=== PATIENT | female | born 1950 | race Caucasian/White ===

== ENCOUNTER 2018-02-16 08:48 | Day surgery (SDC) | payer OTHER ==
[2018-02-12 18:24] VITALS: Ht 162.6 cm; Wt 84.1 kg
[2018-02-16] VITALS (15 sets, daily range): BP systolic 133–201; BP diastolic 49–95; PULSE 52–92; RESP 10–24
[~2018-02-16] VITALS: Ht 162.6 cm; Wt 84.1 kg
[~2018-02-16 08:48] MED LIST: HYDR-2086 PO; LOXA50CA PO; METO-335 PO; OMEG-53 PO; SEVOFLURANE 15 MIN ONE; TEMA30CA PO
[2018-02-16] MEDS ORDERED: TRIH2TAB2 PO (09:21)
[2018-02-16] MEDS ORDERED: CYCL10TA7 PO (09:22)
[2018-02-16] MEDS ORDERED: MELA5TAB4 PO (09:23)
[2018-02-16] MEDS ORDERED: MAGN250T10 PO (09:24)
[2018-02-16] MEDS ORDERED: ASC500 PO (09:25)
[2018-02-16] MEDS ORDERED: MULT-542 PO (09:26)
[2018-02-16] MEDS ORDERED: LIDOCAINE 1%/EPI 30 ML INJ ONE (12:29)
[2018-02-16] MEDS ORDERED: COCAINE 4% 4 ML TOP ONE (12:29)
[2018-02-16] MEDS ORDERED: POLYMYXIN/BACITRACIN 1L IRRIG ONE (12:30)
[2018-02-16] MEDS ORDERED: BACITRACIN/POLYMYXIN 28.35 GM OINT TOP ONE (12:30)
--- NOTE | 2018-02-16 12:32 | HPN ---
Date/Time of Note Date/Time of Note DATE: 02/16/18 TIME: 12:32 Interval H&P Admission Note Pt. seen H&P reviewed: No system changes YAIR SAEED M.D. Feb 16, 2018 12:32
--- NOTE | 2018-02-16 12:47 | PREAC ---
Date/Time of Note Date/Time of Note DATE: 02/16/18 TIME: 12:42 Anesthesia Eval and Record Evaluation Time Pre-Procedure Interview DATE: 02/16/18 TIME: 12:42 Age 67 Sex female NPO: 8 hrs Preoperative diagnosis chronic nasal obstruction Planned procedure bilateral laser turbinoplasty, septoplasty, sphenoid sinus sinusotomies Past Medical History Past Medical History: Includes Cardio: HTN Neuro: Other (migraines) Renal: Other (chronic cystitis) GI: Other (mandible fx s/p surgeries, peptic ulcer disease) Surgery & Anesthesia Issues No known issue Meds Anticoagulation: No Beta Catina within 24 hr: Yes Reason Beta Catina not given: Bradycarida, Hypotension Reported Medications Multivitamin* (Daily Value*) 1 Each Tablet, 1 TAB PO DAILY, TAB 02/16/18 Ascorbic Acid (Vitamin C) 500 Mg Tab, 1000 MG PO DAILY, TAB 02/16/18 Magnesium Oxide (Magnesium) 250 Mg Tablet, 250 MG PO DAILY, TAB 02/16/18 Melatonin (Melatonin) 5 Mg Tablet, 5 MG PO HS, TAB 02/16/18 Cyclobenzaprine Hcl* (Cyclobenzaprine Hcl*) 10 Mg Tablet, 10 MG PO Q8 PRN for MUSCLE SPASMS, #60 TAB 02/16/18 Trihexyphenidyl Hcl* (Trihexyphenidyl Hcl*) 2 Mg Tab, 2 MG PO QHS, #120 TAB 02/16/18 Crosby-3/Dha/Epa/Fish Oil (FISH OIL 500 MG SOFTGEL) 1 Each Capsule, 1 EACH PO, CAP 02/12/18 Hydrocodone Bit-Acetaminophen* (Vicodin*) 5-300 Tab, 1 TAB PO Q4H PRN for PAIN, TAB 02/12/18 Metoprolol Succinate* (Toprol XL*) 25 Mg Tab.sr.24h, 25 MG PO DAILY, #30 TAB 02/12/18 Temazepam* (Temazepam*) 30 Mg Capsule, 30 MG PO HS PRN for INSOMNIA, CAP 02/12/18 Loxapine Succinate (Loxapine) 50 Mg Capsule, 40 MG PO PC MEALS BEDTIME, CAP 02/12/18 Meds reviewed: Yes Allergies Coded Allergies: morphine (Verified Allergy, Severe, VOMITING, 02/16/18) Allergies Reviewed: Yes Labs/Studies Labs Reviewed: Reviewed by anesthesiologist test: N/A Pre-procedure Exam Last vitals Vital Signs Date Temp Pulse Resp B/P (MAP) Pulse Ox O2 O2 Flow FiO2 Time Delivery Rate 02/16/18 98.8 52 18 153/70 97 Room Air 09:39 (97) Airway: Adequate mouth opening (decreased mouth opening), Adequate thyromental dist Mallampati: Mallampati III Teeth: Normal Lung: Normal Heart: Normal ASA Physical Status ASA physical status: 2 Emergency: None Planned Anesthetic General/MAC: ETT Planned Pain Management Parenteral pain med, Local by surgeon Pre-operative Attestations Prior to commencing anesthesia and surgery, the patient was re-evaluated, there was verification of: *The patient's identity *The results of appropriate recent lab work and preoperative vital signs *The above evaluation not changing prior to induction *Anesthetic plan, risk benefits, alternative and complications discussed with patient/family; questions answered; patient/family understands, accepts and wishes to proceed. DINORA ROBERTSON MD Feb 16, 2018 12:47
[2018-02-16] MEDS ORDERED: ROCURONIUM 50 MG INJ ONE (12:54)
[2018-02-16] MEDS ORDERED: SUCCINYLCHOLINE CHLORIDE 100 MG/5 ML SYG IV ONE (12:54)
[2018-02-16] MEDS ORDERED: PROPOFOL 20 ML ONE (12:54)
[2018-02-16] MEDS ORDERED: LIDOCAINE 2% (SDV) 5 ML INJ ONE (12:54)
[2018-02-16] MEDS ORDERED: FENTAnyl 50 MCG/ML VIAL ONE (12:55)
[2018-02-16] MEDS ORDERED: MIDAZOLAM 1 MG/ML 2 ML INJ ONE (12:55)
[2018-02-16] MEDS ORDERED: CEFAZOLIN 1 GM INJ ONE (13:13)
[2018-02-16] MEDS ORDERED: FAMOTIDINE 20 MG INJ ONE (13:15)
[2018-02-16] MEDS ORDERED: DEXAMETHASONE 4 MG/ML 5 ML INJ ONE (13:15)
[2018-02-16] MEDS ORDERED: ONDANSETRON 4 MG INJ ONE (13:15)
[2018-02-16] MEDS ORDERED: hydrALAzine 20 MG INJ ONE ×2 (13:18→14:00)
[2018-02-16] MEDS ORDERED: ONDANSETRON 4 MG INJ IV PRN (13:30)
[2018-02-16] MEDS ORDERED: FENTAnyl 50 MCG/ML VIAL IV PRN (13:30)
[2018-02-16] MEDS ORDERED: DIPHENHYDRAMINE 50 MG INJ IV PRN (13:30)
[2018-02-16] MEDS ORDERED: MEPERIDINE 25 MG INJ IV PRN (13:30)
[2018-02-16] MEDS ORDERED: OXYCODONE/ACETAMINOPHEN (5/325) TAB PO PRN (13:30)
[2018-02-16] MEDS ORDERED: HYDROmorphONE 1 MG/5 ML IV SYRINGE IV PRN ×2 (13:30)
[2018-02-16] MEDS ORDERED: PROCHLORPERAZINE 10 MG INJ IV PRN (13:30)
[2018-02-16] MEDS ORDERED: GLYCOPYRROLATE 0.4 MG INJ ONE (13:48)
[2018-02-16] MEDS ORDERED: NEOSTIGMINE 3 MG/3 ML SYRINGE ONE (13:48)
--- NOTE | 2018-02-16 13:55 | OPR ---
Date/Time of Note Date/Time of Note DATE: 02/16/18 TIME: 13:49 Operative Report Procedure Date: Feb 16, 2018 Preoperative Diagnosis 1. SEPTAL DEVIATION. 2. BILATERAL NASAL TURBINATE HYPERTROPHY. 3. SPHENOID SINUSITIS. 4. CHRONIC NASAL OBSTRUCTION. Postoperative Diagnosis SAME. Operation/Procedure Performed 1. SEPTOPLASTY VIA SMR. 2. BILATERAL NASAL TURBINATE REDUCTION USING KTP 532 NM LASER VIA SMR. 3. SPHENOID SINUS IRRIGATION. Surgeon see signature line Diesel Dinkey Operator NONE. Anesthesia Type: general (WITH OT TUBE INTUBATION. 16 CC 1% LIDOCAINE WITH EPI 1:100,000 SOLN. 4 CC TOPICAL COCCAINE ) Estimated Blood Loss: 0 - 10 ml's Transfusion none Specimen SEPTAL CARTILAGE AND BONE. Grafts/Implants none Tubes/Drains NONE. Complications none Pt Condition Post Procedure: stable Disposition: PACU Indications TO RID INFECTION AND IMPROVE BREATHING. Procedure Description SEE DICTATED OPERATED REPORT. YAIR SAEED M.D. Feb 16, 2018 13:55
--- NOTE | 2018-02-16 13:56 | NUR ---
RECEIVED PATIENT FROM OR VIA BED POST BILATERAL TURBINOPLASTY SEPTOPLASTY UNDER GENERAL ANESTHESIA. PATIENT AWAKE ON ARRIVAL AND BP 201/93 .PATIENT ALSO C/O PAIN 5/10 .SR .ON ROOM AIR SATURATING.96 %.
--- NOTE | 2018-02-16 13:57 | PDOCDIS ---
Discharge Instructions DIAGNOSIS Discharge Diagnosis 1. SEPTAL DEVIATION. 2. BILATERAL NASAL TURBINATE HYPERTROPHY. 3. SPHENOID SINUSITIS. 4. CHRONIC NASAL OBSTRUCTION. CONDITION [id number] Patient Condition: [id number] Good HOME CARE INSTRUCTIONS: [id number] Diet Instructions: Pytaw3y Regular ACTIVITY: [id number] Activity Restrictions: [id number] Slowly Increase Activity Rest between Activity Avoid heavy lifting Avoid Heavy Housework [id number] Bathing Restrictions: [id number] Tub Bath FOLLOW UP/APPOINTMENTS Follow-up Plan MY OFFICE IN 7 TO 10 DAYS. SCHOOL/WORK RELEASE May return to School/Work on: Feb 23, 2018 May return to School/Work with: No Restrictions YAIR SAEED M.D. Feb 16, 2018 13:57
--- NOTE | 2018-02-16 14:12 | PAC ---
Date/Time of Note Date/Time of Note DATE: 02/16/18 TIME: 14:11 Post-Anesthesia Notes Post-Anesthesia Note Last documented vital signs Vital Signs Date Temp Pulse Resp B/P (MAP) Pulse Ox O2 O2 Flow FiO2 Time Delivery Rate 02/16/18 97.8 14:10 02/16/18 52 18 153/70 97 Room Air 09:39 (97) Activity: WNL Respiratory function: WNL Cardiovascular function: WNL Mental status: Baseline Pain reasonably controlled: Yes Hydration appropriate: Yes Nausea/Vomiting absent: Yes Comments BP: 133/89 HR: 90 RR: 15 T: 97.8 SaO2: 99% DINORA ROBERTSON MD Feb 16, 2018 14:12
--- NOTE | 2018-02-16 14:13 | NUR ---
C/O PAIN 5.10 DILAUDID0,4MG IV GIVEN .ZOFRAN 4MG IV GIVEN FOR NAUSEA PROPHYLAXIS .
[2018-02-16] MEDS ORDERED: LABETALOL HCL 20MG INJ IV PRN (14:30)
[2018-02-16] MEDS ORDERED: hydrALAzine 20 MG INJ IV PRN (14:30)
--- NOTE | 2018-02-16 14:37 | NUR ---
PAIN NOW CONTROLLED TO GOAL LEVEL 2/10, BP DOWN TO 133/49. SR .TOLERATED PO LIQUID WELL.
--- NOTE | 2018-02-16 14:46 | NUR ---
PATIENT REPORTS PAIN IS BACK TO 5/10 .DILAUDID0.4MG IV GIVEN.
--- NOTE | 2018-02-16 15:01 | NUR ---
PATIENT REPORTS NO MORE PAIN .EATING ICE CHIPS AT PRESENT .
--- NOTE | 2018-02-16 15:07 | NUR ---
RECEIVED FROM PACU AWAKE AND ALERT,DENIES ANY DISCOMFORT , UNDERSTOOD D/C INSTRUCTIONS
--- NOTE | 2018-02-16 15:07 | NUR ---
TRANSFERRED TO [facility] IN STABLE CONDITION .PAIN RESOLVED .MUSTACHE DRESSING DRY AND INTACT .REPORT GIVEN TO KERVIN HOLLY.
--- NOTE | 2018-02-16 15:54 | NUR ---
HOME IN STABLE CONDITION, MUSTACHE DRESSING CHANGED AND SUPPLIES SENT WITH PT
--- NOTE | 2018-02-17 07:44 | OPR ---
DATE OF OPERATION: 02/16/2018 SURGEON: Dante Fields MD PREOPERATIVE DIAGNOSES: 1. Septal deviation. 2. Sphenoid sinusitis. 3. Bilateral nasal turbinate tissue hypertrophy. 4. Chronic nasal obstruction. POSTOPERATIVE DIAGNOSES: 1. Septal deviation. 2. Sphenoid sinusitis. 3. Bilateral nasal turbinate tissue hypertrophy. 4. Chronic nasal obstruction. OPERATION PERFORMED: 1. A septoplasty using submucosal resection technique. 2. Bilateral laser turbinoplasty procedure using 532 nanometer KTP laser using submucosal resection technique. 3. Sphenoid sinus irrigation. ESTIMATED BLOOD LOSS: Approximately 10 mL. COMPLICATIONS: No complications. SPECIMENS SENT TO LAB: Septal cartilage and bone for gross and microscopic evaluation. ANESTHETIC USED: General anesthesia with a local infiltrate of 16 mL of 1% lidocaine with epinephrine 1:100,000 solution using a 23-gauge spinal needle. The patient also had IV Ancef and Decadron before the case was begun. The patient also received topical cocaine 4% using 4 mL on cottonoids. INDICATIONS: Ms. Tonya Espinosa is a 67-year-old female who has a history of chronic sphenoid sinusitis treated with multiple antibiotic medications which have met with failure. The patient continues to have headaches as well as chronic nasal obstruction. The patient has been found preoperatively to have septal deviation and bilaterally enlarged nasal turbinates. The patient is currently scheduled for today's procedure. Risks, benefits, and alternatives have been explained thoroughly to Ms. Espinosa include infection, bleeding, scar formation, possible septal perforation as well as possible reaction to local and general anesthetic agents used during the procedure. She has signed consent once her questions were answered. FINDINGS DURING PROCEDURE: Right nasal septal deviation with papillomatous degenerative mucosal changes of the nasal cavity. The patient was also found to have chronic sphenoid sinusitis without any malignancies or tumors seen during the procedure. The patient was also found to have enlarged turbinates bilaterally. DISPOSITION: The patient left the operating room in good and satisfactory condition and was extubated before being taken to the recovery room. DESCRIPTION OF PROCEDURE: The patient was taken the operating room, placed on the surgical table in supine position, made comfortable by the anesthesiologist, Dr. Pak. The patient had EKG, saturation monitoring and blood pressure cuff applied. The patient was then given mask inhalation agents, placed asleep gently. The patient had a previously started IV in the pre-induction area which was infusing well. The patient was then given IV sedation and placed under deep anesthesia. The patient then was successfully orotracheally intubated with orotracheal cuffed tube and secured to the left corner of the mouth as the eyes were taped for protection. At this point, the patient's vital signs were noted to be stable as the table was left in the midline. A brief time-out with patient identification and procedures entertained, and all were in agreement. At this point, the patient was draped out in usual sterile fashion using a split sheet. Wet towels were then placed all around the nasal area in preparation for laser use. At this point, the intranasal cavity was inspected and injected with 1% lidocaine with epinephrine 1:100,000 solution. This injection was carried out of the nasal septum, floor of the nose and the inferior turbinate bilaterally. There is also injection using an intercartilage approach along the nasal dorsum. Cocaine was then applied to the nose after cottonoids were soaked with this solution and placed in the anterior ethmoid and behind the middle turbinate areas. At this point, a KTP 532 nanometer laser was then made ready at 8 enrique continuous power. A foot pedal was used to activate the laser. All personnel in the operating room were asked to place safety goggles on for their protection. At this point, the straight hand laser hand feed with suction attachment was then made ready at 8 enrique continuous power. The cottonoids were then removed from the nasal cavity. At this point, the left inferior turbinate was reduced in size in the submucosal space using a stabbing technique with a laser fiber. The smoke was evacuated through the evacuator on the hand piece. The inferior turbinate on the left side was noted to shrink in size as it was lateralized with the nasal speculum. This gave greater patency of the nasal cavity. Right side was done in a similar fashion in a posterior direction in the submucosal space. The right inferior turbinate was also reduced in size by lateralizing against the medial wall of the maxillary sinus. At this point, this gave greater patency of the right side of the nose. A Boogie suction was then used to remove blood from the nasal cavity. At this point, the nasal cavity was inspected and the patient was found to have right nasal septal deviation of the anterior septal margin. The procedure was performed by creating a hemitransfixion incision on the left side of the nose and the anterior septal margin with a #15 Bard-Timur sharp stainless steel blade. A mucoperichondrial flap was elevated on the left side of the septum with care not to damage or tear the flap. The hemitransfixion incision was then completed with the same #15 Bard-Timur sharp stainless steel blade. This allowed the Lumpkin elevator to advance on the right side of the anterior septum. Again, this side was elevated with care not to tear the flap as the swinging door technique was used after the septal cartilage was skeletonized. A Jaclyn forceps was then used to remove the inferior aspect of the nasal septum and a posterior incision in a vertical direction was used to free the septum and allow it to swing back towards the left side. At this point, the septum was noted to be in the midline as the hemitransfixion incision was closed with 4-0 Vicryl suture in simple interrupted fashion with good mucosal edge closure. Plication suture was then applied to the septum to prevent hematoma formation and to keep the septum in the midline. At this point, the top of the sphenoid sinus was seen and the left posterior aspect of the nose. The anterior wall of the sphenoid sinus was then removed using a chipping technique using a small osteotome. At this point, the left sphenoid sinus was entered and found to have chronic changes of the mucosa. At this point, copious amounts of normal saline solution with bacitracin added was used to irrigate the sphenoid sinus until the irrigant was clear. A Boogie suction catheter was then used to remove bleeding, mucous and irrigant from the nose. Bacitracin ointment was then applied to the nose as a packing and a mustache dressing applied at the end of the procedure. Sponge count and instrument count was correct x3. There were no complications during the procedure. The patient was reversed from general anesthetic agent, extubated in the operating room and taken to recovery room where she is currently doing well, expected to be discharged home unless postoperative complications develop. Dictated By: DANTE RIOS/YANNA Conf#: [id number] DID#: [id number] GAGE
== END 2018-02-16 15:55 | disposition home or self-care (01) ==
LOC: SDS 08:48
PROVIDERS: ATTEND Otolaryngology Otolaryngology/Facial Plastic Surgery
DX: J34.2 Deviated nasal septum (principal); J32.3 Chronic sphenoidal sinusitis; J34.3 Hypertrophy of nasal turbinates; I10 Essential (primary) hypertension
CPT/HCPCS: 30140; 30520; 88304; 88311; J0360; J0690; J1100; J1170; J2250; J2405; J2710; J3010; Z7512; Z7610